=== PATIENT | male | born 1975 | race Caucasian/White ===

== ENCOUNTER 2021-02-21 12:19 | Emergency (ER) | payer OTHER, BC ==
[~2021-02-21] VITALS: Ht 182.9 cm; Wt 90.7 kg
[2021-02-21 13:27] LABS: SARS-Cov-2 (COVID-19) PCR, MMC NEGATIVE (NEGATIVE)
== END 2021-02-21 14:51 | disposition home or self-care (01) ==
LOC: ER 12:19
PROVIDERS: Physician Assistant
DX: Z20.822 Contact with and (suspected) exposure to COVID-19 (principal); L40.9 Psoriasis, unspecified; Z91.048 Other nonmedicinal substance allergy status
CPT/HCPCS: 99282; U0004

== ENCOUNTER → 2025-02-18 | Outpatient (CLI) | payer BC ==
[2025-02-19 16:12] LABS: Stool Occult Bld Immuno 1 Negative (NEGATIVE)
== END ==
LOC: LAB SHORT 14:00 → LAB 14:00
PROVIDERS: Internal Medicine
DX: D53.9 Nutritional anemia, unspecified (principal)
CPT/HCPCS: 82274